=== PATIENT | male | born 1990 | race Two or more races ===

== ENCOUNTER 2019-01-10 06:36 | Emergency (ER) | payer OTHER ==
[~2019-01-10] VITALS: Ht 182.9 cm; Wt 72.6 kg
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
[2019-01-10] MEDS ORDERED: OLANZAPINE 5 MG TABLET ONE (06:49)
--- NOTE | 2019-01-10 06:50 | NUR ---
LOADER HELPER SORTING YARD AT BEDSIDE FOR BLOOD DRAW
[2019-01-10] MEDS: OLANZAPINE 5 MG TABLET PO ONE (06:53)
--- NOTE | 2019-01-10 06:54 | NUR ---
PT UNABLE TO PROVIDE URINE SAMPLE AT THIS TIME. MD WU
[2019-01-10 07:00] LABS: BASOPHILS % (AUTO) 0.5 % (0.0-2.0); EOSINOPHILS % (AUTO) 0.3 % (0.0-6.0); HEMATOCRIT 36 % (39-51); HEMOGLOBIN 12.1 g/dL (13.5-17.5); LYMPHOCYTES # (AUTO) 3.8 /CMM (0.8-4.8); LYMPHOCYTES % (AUTO) 38.2 % (20.0-44.0); MEAN CORPUSCULAR HGB CONC 34 g/dl (31.0-36.0); MEAN CORPUSCULAR VOLUME 80 fL (80-96); MONOCYTES # (AUTO) 0.8 /CMM (0.1-1.30); MONOCYTES % (AUTO) 7.7 % (2.0-12.0); NEUTROPHILS # (AUTO) 5.3 /CMM (1.8-8.9); NEUTROPHILS % (AUTO) 53.3 % (43.0-81.0); PLATELET COUNT (AUTO) 451 /CMM (150-450); RED BLOOD CELL COUNT(AUTO) 4.45 MIL/uL (4.5-6.0); WHITE BLOOD COUNT (AUTO) 9.9 K/uL (4.3-11.0)
[2019-01-10] MEDS ORDERED: diphenhydrAMINE HCL 50 MG/ML VIAL ONE (07:06)
[2019-01-10] MEDS ORDERED: LORAZEPAM INJ 2 MG/ML VIAL ONE (07:07)
[2019-01-10] MEDS ORDERED: HALOPERIDOL LACTATE INJ 5 MG/ML VIAL ONE (07:07)
[2019-01-10 07:11] LABS: CARBON DIOXIDE 21 mmol/L (21-32); CHLORIDE 98 mmol/L (98-107); CREATININE 1.1 mg/dL (0.6-1.3); GLUCOSE 125 mg/dL (74-106); POTASSIUM 3.2 mmol/L (3.5-5.1); SODIUM SERUM 134 mmol/L (136-145); UREA NITROGEN, BLOOD 12 mg/dL (7-18)
[2019-01-10] MEDS: LORAZEPAM INJ 2 MG/ML VIAL IM ONE (07:15)
[2019-01-10] MEDS: diphenhydrAMINE HCL 50 MG/ML VIAL IM ONE (07:15)
[2019-01-10] MEDS: HALOPERIDOL LACTATE INJ 5 MG/ML VIAL IM ONE (07:16)
--- NOTE | 2019-01-10 07:19 | NUR ---
GAVE REPORT TO [facility] FLOWERS FOR ASAD
--- NOTE | 2019-01-10 07:20 | NUR ---
RECVD REPORT FROM CHRISTINE, PATIENT REMAINS STABLE IN NO DISTRESS, WILL CONTINUE TO MONITOR
[2019-01-10 07:23] LABS: ALKALINE PHOSPHATASE 100 U/L (46-116); BILIRUBIN,TOTAL 0.2 mg/dL (0.2-1.0)
[2019-01-10 07:24] LABS: ACETAMINOPHEN < 2 ug/ml (10-30); ALANINE AMINOTRANSFERASE 29 U/L (12-78); ALBUMIN 3.1 g/dL (3.4-5.0); ALCOHOL, BLOOD < 3 mg/dL (0-0); ASPARTATE AMINOTRANSFERASE 29 U/L (15-37); SALICYLATE 1.2 mg/dL (2.8-20.0)
--- NOTE | 2019-01-10 09:00 | NUR ---
PATIENT ASLEEP AND REMAINS STABLE WITH NO DISTRESS NOTED. WILL CONITNUE TO MONITOR
--- NOTE | 2019-01-10 11:00 | NUR ---
PATEINT ASLEEP BREATHING EVEN AND UNLABORED WITH NO DISTRESS. VSS ARE STABLE. WILL CONTINUE TO MONITOR
[2019-01-10 12:49] LABS: APPEARANCE,URINE Clear (CLEAR); BILIRUBIN,URINE Negative (NEGATIVE); BLOOD, URINE Negative Ery/uL (NEGATIVE); COLOR,URINE Yellow (YELLOW); KETONES,URINE Negative (NEGATIVE); LEUKOCYTE ESTERASE ,URINE Negative (NEGATIVE); NITRITE, URINE Negative (NEGATIVE); PH,URINE 7.5 (5.0-8.0); PROTEIN,URINE Negative (NEGATIVE); UGLUCOSE Negative (NEGATIVE); UROBILINOGEN,URINE 0.2 EU/dL (0.2)
--- NOTE | 2019-01-10 13:03 | NUR ---
PATIENT AWAKE, LUNCH PROVIDED AT BEDSIDE
--- NOTE | 2019-01-10 13:59 | NUR ---
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
[2019-01-10 15:03] VITALS: BP 111/64
== END 2019-01-10 15:03 | disposition home or self-care (01) ==
LOC: ER 06:36
DX: F41.9 Anxiety disorder, unspecified (principal); F15.10 Other stimulant abuse, uncomplicated; Z59.0 Homelessness
CPT/HCPCS: 36415; 80048; 80076; 80305; 80307; 80329; 81001; 85025; 96372 ×3; 99284; A4606; G0480; J1200; J1630; J2060; 81000-TC

== ENCOUNTER 2019-02-08 04:07 | Emergency (ER) | payer OTHER ==
[~2019-02-08] VITALS: Ht 177.8 cm; Wt 68.0 kg
[2019-02-08 04:16] VITALS: BP 137/84
--- NOTE | 2019-02-08 04:48 | NUR ---
TECH AT BEDSIDE FOR EKG
== END 2019-02-08 05:25 | disposition home or self-care (01) ==
LOC: ER 04:09
DX: F41.9 Anxiety disorder, unspecified (principal); F15.10 Other stimulant abuse, uncomplicated; F41.0 Panic disorder [episodic paroxysmal anxiety]; Z59.0 Homelessness
CPT/HCPCS: 93005; 99284; A4606

== ENCOUNTER 2019-08-06 13:30 | Emergency (ER) | payer OTHER ==
[~2019-08-06] VITALS: Ht 182.9 cm; Wt 75.3 kg
[2019-08-06] MEDS ORDERED: LORAZEPAM 1 MG TABLET PO ONE (14:00)
--- NOTE | 2019-08-06 14:00 | NUR ---
patient came in to the ER c/o being anxious. On room air, breathing evenly and unlabored. connected to the monitor and pulse ox. kept comfortable, will continue to monitor accordingly.
[2019-08-06] MEDS ORDERED: LORAZEPAM 1 MG TABLET ONE (14:15)
[2019-08-06 15:01] VITALS: BP 145/88
--- NOTE | 2019-08-06 15:02 | NUR ---
Patient discharged to home in stable condition. Written and verbal after care instructions given. Patient verbalizes understanding of instruction.
== END 2019-08-06 15:02 | disposition home or self-care (01) ==
LOC: ER 13:34
DX: F41.9 Anxiety disorder, unspecified (principal); F15.10 Other stimulant abuse, uncomplicated

== ENCOUNTER 2019-08-11 11:04 | Emergency (ER) | payer OTHER ==
[~2019-08-11] VITALS: Ht 182.9 cm; Wt 73.9 kg
[2019-08-11] MEDS ORDERED: clonazePAM 1 MG TABLET PO ONE (11:30)
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
[2019-08-11] MEDS ORDERED: clonazePAM 0.5 MG TABLET PO ONE (12:00)
[2019-08-11 12:40] VITALS: BP 135/71
--- NOTE | 2019-08-11 12:42 | NUR ---
Patient discharged to home in stable condition. Written and verbal after care instructions given. Patient verbalizes understanding of instruction.
== END 2019-08-11 12:42 | disposition home or self-care (01) ==
LOC: ER 11:04
DX: S31.821A Laceration without foreign body of left buttock, initial encounter (principal); W26.0XXA Contact with knife, initial encounter; Y93.89 Activity, other specified; Y92.89 Other specified places as the place of occurrence of the external cause; Y99.8 Other external cause status
CPT/HCPCS: 12001; 99283; A6403

== ENCOUNTER 2019-11-18 08:58 | Emergency (ER) | payer OTHER ==
[~2019-11-18] VITALS: Ht 170.2 cm; Wt 70.3 kg
[2019-11-18 09:21] VITALS: BP 144/80
--- NOTE | 2019-11-18 09:21 | NUR ---
Patient discharged to home in stable condition. Written and verbal after care instructions given. Patient verbalizes understanding of instruction.
== END 2019-11-18 09:22 | disposition home or self-care (01) ==
LOC: ER 09:06
DX: F15.10 Other stimulant abuse, uncomplicated (principal); F41.9 Anxiety disorder, unspecified

== ENCOUNTER 2021-09-01 06:30 | Emergency (ER) | payer OTHER ==
[~2021-09-01] VITALS: Ht 182.9 cm; Wt 77.1 kg
[2021-09-01 07:10] LABS: BASOPHILS # (AUTO) 0.1 K/uL (0.0-0.2); BASOPHILS % (AUTO) 1.5 % (0.0-2.0); EOSINOPHILS % (AUTO) 3.2 % (0.0-6.0); HEMATOCRIT 33 % (39-51); HEMOGLOBIN 10.3 g/dL (13.5-17.5); LYMPHOCYTES # (AUTO) 0.8 K/uL (0.8-4.8); LYMPHOCYTES % (AUTO) 17.6 % (20.0-44.0); MEAN CORPUSCULAR HGB CONC 32 g/dl (31.0-36.0); MEAN CORPUSCULAR VOLUME 76 fL (80-96); MONOCYTES # (AUTO) 0.7 K/uL (0.1-1.30); MONOCYTES % (AUTO) 15.1 % (2.0-12.0); NEUTROPHILS # (AUTO) 2.8 K/uL (1.8-8.9); NEUTROPHILS % (AUTO) 62.6 % (43.0-81.0); PLATELET COUNT (AUTO) 485 K/uL (150-450); RED BLOOD CELL COUNT(AUTO) 4.29 MIL/uL (4.5-6.0); WHITE BLOOD COUNT (AUTO) 4.4 K/uL (4.3-11.0)
[2021-09-01] MEDS ORDERED: KETOROLAC TROMETHAMINE INJ 30 MG/ML VIAL IM ONE (07:30)
[2021-09-01 07:37] LABS: CALCIUM, SERUM 8.8 mg/dL (8.5-10.1); CREATININE 1.1 mg/dL (0.6-1.3); POTASSIUM 3.8 mmol/L (3.5-5.1)
[2021-09-01] MEDS ORDERED: KETOROLAC TROMETHAMINE 15 MG/ML VIAL ONE (08:32)
[2021-09-01] MEDS ORDERED: CT SWABBABLE VALVE TRANS SET 1 EA INFUS.SET MC ONE (08:54)
[2021-09-01] MEDS ORDERED: IOHEXOL-350 100 ML VIAL IV ONE (08:54)
[2021-09-01] MEDS ORDERED: IV NS 0.9% 250 ML IV ONE (08:55)
--- NOTE | 2021-09-01 08:59 | NUR ---
THE PATIENT IS TAKEN TO CT
--- NOTE | 2021-09-01 08:59 | NUR ---
TO ER BED 6, C/O BODY ACHE X1WK, AAOX4, CONNECTED TO MONITOR.
--- NOTE | 2021-09-01 09:08 | NUR ---
PATIENT BACK FROM CT
[2021-09-01 09:15] LABS: EOSINOPHILS % (MANUAL) 2 % (0-4); LYMPHOCYTES % (MANUAL) 14 % (16-48); MONOCYTES % (MANUAL) 18 % (0-11.0); NEUTROPHILS % (MANUAL) 66 (42-76)
--- NOTE | 2021-09-01 09:50 | NUR ---
DR FLORES AT BEDSIDE
[2021-09-01] MEDS ORDERED: AMOX-430 PO (10:24)
[2021-09-01] MEDS ORDERED: DOXY100T2 PO (10:24)
--- NOTE | 2021-09-01 10:47 | NUR ---
IV removed. Catheter intact and site benign. Pressure and 4x4 applied to site. No bleeding noted.Patient discharged to home in stable condition. Written and verbal after care instructions given. Patient verbalizes understanding of instruction.
[2021-09-01 11:02] VITALS: BP 134/73
== END 2021-09-01 11:03 | disposition home or self-care (01) ==
LOC: ER 06:31
DX: J18.9 Pneumonia, unspecified organism (principal); J06.9 Acute upper respiratory infection, unspecified; Z20.822 Contact with and (suspected) exposure to COVID-19; R59.0 Localized enlarged lymph nodes; D50.9 Iron deficiency anemia, unspecified; D75.839 Thrombocytosis, unspecified; J98.59 Other diseases of mediastinum, not elsewhere classified; F17.200 Nicotine dependence, unspecified, uncomplicated; F15.10 Other stimulant abuse, uncomplicated; Z86.16 Personal history of COVID-19; Z91.14 Patient's other noncompliance with medication regimen; R03.0 Elevated blood-pressure reading, without diagnosis of hypertension; Z59.01 Sheltered homelessness
CPT/HCPCS: 36415; 71045; 71275; 80048; 85007; 85025; 93005; 96372; 99285; C9803; J1885; J7050; Q9967; U0003